=== PATIENT | female | born 1975 | race Caucasian/White ===

== ENCOUNTER → 2018-04-21 09:58 | Outpatient (CLI) | payer BC, SELFPAY ==
[2018-04-21 12:45] LABS: Vitamin D,25 Hydroxy 23.3 ng/mL (29.95-100.01)
== END ==
PROVIDERS: Family Provider Family Medicine; PCP Family Medicine; Visit Provider Family Medicine
DX: E55.9 Vitamin D deficiency, unspecified (principal)
CPT/HCPCS: 36415; 82306

== ENCOUNTER → 2018-08-04 | Outpatient (CLI) | payer BC, SELFPAY ==
[2016-12-03 19:37] VITALS: BMI 31.4
--- NOTE | 2018-08-04 14:46 | RAD_ITS ---
STUDY: X-RAY - THORACIC SPINE REASON FOR EXAM: Female, 43 years old. Shoulder pain and weakness. TECHNIQUE: 3 view(s) of the thoracic spine were obtained. COMPARISON: None. FINDINGS: Normal kyphosis of the thoracic spine. There is no significant scoliosis. Normal thoracic vertebrae and endplates. Normal disc space heights. The soft tissue structures are unremarkable. RAD/Thoracic Spine 3 Views IMPRESSION: Normal x-ray examination of the thoracic spine. Electronically Signed: Cornel Ray MD at 21:57 EDT , Service support ,
--- NOTE | 2018-08-04 14:46 | RAD_ITS ---
STUDY: X-RAY - CERVICAL SPINE REASON FOR EXAM: Female, 43 years old. Pain and numbness. TECHNIQUE: 5 view(s) of the cervical spine were obtained. COMPARISON: None FINDINGS: Normal anterior atlantoaxial articulation. Normal odontoid process. Normal cervical lordosis. Normal vertebral bodies and endplates. Normal disc space heights. Normal visualized intervertebral neuroforamina. The soft tissue structures are unremarkable. There is no demonstrated fracture of the cervical spine. RAD/Cerv Spine 4 or 5 Views IMPRESSION: Normal x-ray examination of the visualized cervical spine. Electronically Signed: Cornel Ray MD at 21:55 EDT , Service support ,
--- NOTE | 2018-08-04 14:46 | RAD_ITS ---
STUDY: X-RAY - RIGHT SHOULDER REASON FOR EXAM: Female, 43 years old. Pain. TECHNIQUE: 4 view(s) of the shoulder. COMPARISON: None. FINDINGS: Normal glenohumeral articulation. Normal acromioclavicular joint. Normal acromion. Normal humeral head and visualized proximal humerus. The soft tissue structures are unremarkable. There is no demonstrated fracture. Normal visualized pulmonary apex. RAD/Shoulder min 2 Views IMPRESSION: Normal x-ray examination of the shoulder. Electronically Signed: Cornel Ray MD at 21:56 EDT , Service support ,
== END | disposition home or self-care (01) ==
LOC: MTRAD 14:45
PROVIDERS: Family Provider Family Medicine; PCP Family Medicine; Referring Provider Family Medicine; Visit Provider Family Medicine
DX: M54.12 Radiculopathy, cervical region (principal); M75.111 Incomplete rotator cuff tear or rupture of right shoulder, not specified as traumatic; M12.811 Other specific arthropathies, not elsewhere classified, right shoulder
CPT/HCPCS: 72050; 72072; 73030

== ENCOUNTER → 2018-09-05 16:30 | Outpatient (CLI) | payer BC, SELFPAY ==
[2018-09-05 18:07] LABS: AST(SGOT) 33 U/L (15-37); Alanine Aminotransfer ALT/SGPT 48 U/L (13-56); Albumin, Serum 3.8 g/dL (3.2-5.0); Alkaline Phosphatase 66 U/L (45-117); Anion Gap 10 (5-15); BUN 10 mg/dL (7-18); BUN/Creat Ratio 9.3 RATIO (10-20); Calcium,Total 8.7 mg/dL (8.5-10.1); Chloride 108 mmol/L (98-107); Creatinine, Serum 1.07 mg/dL (0.55-1.02); EST Glomerular Filtration Rate 60 mL/min (>60); Est Glom Filt Rate - Afr Amer 73 mL/min (>60); Glucose 125 mg/dL (74-106); Potassium 3.4 mmol/L (3.5-5.1); Protein, Total 7.8 g/dL (6.4-8.2); Sodium Level 141 mmol/L (136-145); Thyroid Stim Hormone (TSH) 0.86 uIU/mL (0.358-3.74)
[2018-09-05 18:24] LABS: Absolute Lymphocyte Count 1.89 X10^3/ul (0.83-4.51); Basophil# 0.02 X10^3/uL; Basophil% 0.3 % (0-1); Eosinophil# 0.03 X10^3/uL; Eosinophils% 0.5 % (0-5); Hemoglobin 14.5 g/dl (12.0-15.0); Lymphocyte # 1.89 X10^3/ul (4.0); Lymphocyte % 29.7 % (19-41); Mean Corp Hgb Conc 33.7 g/gl (32-36); Mean Corpuscular Hgb 28.3 pg (27.0-32.0); Mean Corpuscular Volume 83.8 fL (81-99); Mean Platelet Vol. 11.3 fl (6.2-12.0); Monocyte# 0.43 X10^3/uL; Monocyte% 6.8 % (0-10); Neutrophil # 3.99 X10^3/uL (2.7-7.7); Neutrophil % 62.5 % (47-70); Platelet Count 228 K/mm3 (150-450); RBC Distribution Width CV 12.8 % (11.6-14.6); RBC Distribution Width SD 38.3 fl (35.1-43.9); Red Blood Count 5.13 M/mm3 (4.2-5.4); White Blood Count 6.4 K/mm3 (4.4-11.0)
[2018-09-05 18:25] LABS: Differential Indicated SCAN CRITERIA MET; POSITIVE COUNT NO; POSITIVE DIFFERENTIAL NO; POSITIVE MORPHOLOGY YES
[2018-09-05 18:54] LABS: Platelet Estimate ADEQUATE (ADEQ); Red Cell Morphology NORM C+C NORMAL (NORM C&C)
== END ==
PROVIDERS: Family Provider Family Medicine; PCP Family Medicine; Visit Provider Family Medicine
DX: E03.9 Hypothyroidism, unspecified (principal); L40.9 Psoriasis, unspecified
CPT/HCPCS: 36415; 80053; 84443; 85025

== ENCOUNTER → 2018-09-06 08:29 | Outpatient (CLI) | payer BC, SELFPAY ==
[2018-09-10 08:20] LABS: HPV HC, High Risk Negative (Negative)
== END ==
PROVIDERS: Family Provider Family Medicine; PCP Family Medicine; Visit Provider Family Medicine
DX: Z12.4 Encounter for screening for malignant neoplasm of cervix (principal)
CPT/HCPCS: 87624; 88175; G0145

== ENCOUNTER → 2018-12-05 15:27 | Outpatient (CLI) | payer BC, SELFPAY ==
--- NOTE | 2018-12-05 15:29 | BI_ITS ---
MAMMOGRAPHY - BILATERAL SCREENING REASON FOR EXAM: Female, 43 years old. Routine annual screening examination. PERTINENT HISTORY: Aunt with breast cancer. TECHNIQUE: Digital bilateral breast sandi (3D mammographic acquisition) in the CC and MLO projections. 2-D mediolateral oblique (MLO) and craniocaudad (CC) views of both breasts were obtained. CAD: Full Field Digital Mammography with Computer Added Detection was performed. COMPARISON: Comparison is made with prior outside examination dated August 10, 2017 and May 10, 2013. FINDINGS: Breast Composition: The breasts are heterogeneously dense, which may obscure small masses. There are no dominant masses or suspicious calcifications. Stable small benign-appearing bilateral axillary lymph nodes. No other significant abnormalities are identified. There has been no significant change since the prior study. BI/SCREEN MAMM (CAD) W/SANDI BILAT IMPRESSION: Stable bilateral screening mammogram. Yearly follow-up mammogram recommended. (A) ASSESSMENT CATEGORY: BIRADS Category 2: Benign. A letter regarding these results will be sent to the patient by the facility within 30 days. Approximately 10% of breast cancers are not detected by mammography. A normal mammogram should not delay biopsy of a clinically suspicious abnormality. [id number] Electronically Signed: Miguel Velez, at 13:13 EDT , Service support ,
== END ==
PROVIDERS: Family Provider Family Medicine; PCP Family Medicine; Referring Provider Family Medicine; Visit Provider Family Medicine
DX: Z12.31 Encounter for screening mammogram for malignant neoplasm of breast (principal)
CPT/HCPCS: 77063; 77067

== ENCOUNTER → 2019-06-05 12:00 | Outpatient (CLI) | payer BC, SELFPAY ==
[2019-06-05 15:31] LABS: Vitamin D,25 Hydroxy 27.7 ng/mL (29.95-100.01)
== END ==
PROVIDERS: Family Provider Family Medicine; PCP Family Medicine; Visit Provider Family Medicine
DX: E03.9 Hypothyroidism, unspecified (principal); E55.9 Vitamin D deficiency, unspecified
CPT/HCPCS: 36415; 82306

== ENCOUNTER 2019-06-09 11:12 | Emergency (ER) | payer BC, SELFPAY ==
[2019-06-09 11:15] VITALS: BP 154/97; PULSE 90; RESP 17; TEMP 37.1; O2SAT 99; BMI 33.3
--- NOTE | 2019-06-09 11:41 | CT_ITS ---
STUDY: CTA HEAD AND NECK WITH CONTRAST REASON FOR EXAM: Female, 43 years old. HEADACHE, RT SIDE PARAESTHESIAS RADIATION DOSAGE (If Supplied By Facility): CTDIvol = ( 23.76 ) mGy, DLP = ( 1393.44 ) mGycm TECHNIQUE: Noncontrast head CT initially performed. CT angiography was performed with a multi-detector CT scanner. Data acquisition was obtained from the skull base through the vertex following intravenous administration of ISOVUE 300 100ML. MIP images were reconstructed from the axial data set. Post-processing of the angiographic images was performed, with multiplanar reformation and 3D reconstruction. Degree of stenosis (when present) measured utilizing NASCET criteria. Individualized dose optimization techniques were used for this CT. COMPARISON: No relevant priors. FINDINGS: Normal bilateral petrous carotid arteries. Normal right cavernous carotid artery with a normal supraclinoid bifurcation. Normal left cavernous carotid artery with a normal supraclinoid bifurcation. Normal right A1 segments of the anterior cerebral artery. Normal left A1 segments of the anterior cerebral artery. Normal intact anterior communicating artery (ACOM). Normal bilateral A2 segments of the anterior cerebral arteries. Normal right M1 and M2 segments of the middle cerebral arteries, with a normal M1 bifurcation. Normal left M1 and M2 segments of the middle cerebral arteries, with a normal M1 bifurcation. Normal right posterior communicating artery (PCOM). Normal left posterior communicating artery (PCOM). Normal bilateral vertebral arteries. Normal basilar artery with a normal basilar bifurcation. The visualized bilateral superior cerebellar (SCA) arteries are normal. Grossly bilateral P1, P2 and visualized P3 segments of the posterior cerebral arteries but limited evaluation of left posterior cerebral artery due to small size. There is no demonstrated aneurysm of the [place]. There is no demonstrated abnormality of the visualized brain. AORTIC ARCH: Normal visualized aortic arch. Normal origins of the brachiocephalic, left common carotid, and left subclavian arteries. RIGHT CAROTID ARTERIES: Normal right common carotid artery (CCA). Normal right common carotid bulb. Normal origin of the right internal carotid (ICA) artery without a hemodynamically significant stenosis. Normal visualized cervical portion of the right internal carotid artery. Normal origin of the right external carotid artery (ECA). LEFT CAROTID ARTERIES: Normal left common carotid artery (CCA). Normal left common carotid bulb. Normal origin of the left internal carotid (ICA) artery without a hemodynamically significant stenosis. Normal visualized cervical portion of the left internal carotid artery. Normal origin of the left external carotid artery (ECA). VERTEBRAL ARTERIES: Normal bilateral vertebral arteries. Ventricular system is normal for age. No masses, mass effect or shift of midline structures. No acute intracranial hemorrhage, obvious infarction. Visualized paranasal sinuses, mastoid air cells and orbits are unremarkable. Calvarium and extracranial soft tissues are unremarkable. CT/CTA Head AND Neck W/ Contrast IMPRESSION: 1. Normal CTA Head and neck with contrast. 2. No acute intracranial hemorrhage or mass effect. Electronically Signed: Daryn Olivarez MD ([place]) at 13:24 EST , Service support ,
[2019-06-09] MEDS: 0.9% Normal Saline 1,000 ML 150 ML IV (11:52)
[2019-06-09 11:53] VITALS: BP 138/99; PULSE 81; RESP 15; O2SAT 99
[2019-06-09 12:09] LABS: Absolute Lymphocyte Count 1.57 X10^3/uL (0.83-4.51); Absolute Neutrophil Count 3.3 X10^3/uL (2.0-7.7); Basophil# 0.02 X10^3/uL; Basophil% 0.4 % (0-1); Eosinophil# 0.13 X10^3/uL; Eosinophils% 2.4 % (0-5); Hemoglobin 14.9 g/dL (12.0-15.0); Lymphocyte # 1.57 X10^3/ul (4.0); Lymphocyte % 28.6 % (19-41); Mean Corp Hgb Conc 32.4 g/dL (32-36); Mean Corpuscular Volume 86.3 fL (81-99); Mean Platelet Vol. 10.3 fl (6.2-12.0); Monocyte# 0.46 X10^3/uL; Monocyte% 8.4 % (0-10); NRBC Flagged by Analyzer 0 % (0-5); Neutrophil # 3.29 X10^3/uL (2.7-7.7); Neutrophil % 59.8 % (47-70); Platelet Count 244 K/mm3 (150-450); RBC Distribution Width CV 12.4 % (11.6-14.6); RBC Distribution Width SD 38.9 fl (35.1-43.9); Red Blood Count 5.33 M/mm3 (4.2-5.4); White Blood Count 5.5 K/mm3 (4.4-11.0)
[2019-06-09 12:12] LABS: Mucous, Urine 0 SEEN /hpf (<or=2+); Red Blood Cells-Urine 0 SEEN /hpf (0-5); White Blood Cells 0 SEEN /hpf (0-5)
[2019-06-09 12:15] LABS: Color, Urine Yellow (Yellow); Glucose, Dipstick Normal (Normal); Ketone-Dipstick Negative (Negative); Leukocyte Esterase-Dipstick Negative /ul (Negative); Nitrite-Dipstick Negative (Negative); Occult Blood-Urine Negative /ul (Negative); Protein-Dipstick Negative (Negative); Specific Gravity, Urine 1.015 (1.002-1.030); Urine Bilirubin Dipstick Negative (Negative); Urine Clarity Clear (Clear); Urine Urobilinogen Normal (Normal)
[2019-06-09 12:19] LABS: Anion Gap 5 (5-15); BUN 14 mg/dL (7-18); BUN/Creat Ratio 16.1 RATIO (10-20); Calcium,Total 8.6 mg/dL (8.5-10.1); Chloride 105 mmol/L (98-107); Creatinine, Serum 0.87 mg/dL (0.55-1.02); EST Glomerular Filtration Rate 76 mL/min (>60); Est Glom Filt Rate - Afr Amer 92 mL/min (>60); Estimated Creatinine Clearance 70.39 ml/min; Glucose 101 mg/dL (74-106); Potassium 4.1 mmol/L (3.5-5.1); Sodium Level 138 mmol/L (136-145)
[2019-06-09 12:36] LABS: Bacteria RARE /hpf (None Seen); Squamous Epithelial Cells - UA 0-5 SEEN /hpf (5-10)
[2019-06-09 13:19] LABS: hCG Titer Quant., Serum < 1 mIU/mL (1-3)
--- NOTE | 2019-06-09 13:55 | ED.VISSUMM ---
- ER Visit Summary Date of Service: 06/09/19 Chief Complaint: Headache and paresthesias] History of Present Illness: The patient is a 43 F [presents the emergency department with complaint of symptoms that started 4 days ago. Patient states that she initially woke up with a headache about 4 days ago in the back of her head. It was more right-sided and then kind of came around the front. Patient then had pain behind her right baptism and right eyebrow and right eye. Patient was seen by her chiropractor and had adjustments made. Patient had some twitching of her eye intermittently and chiropractor thought maybe she had trigeminal neuralgia. Patient states that she has had occipital neuralgia in the past. She has history of chronic neck pain issues. This morning she woke up some with some numbness and tingling in the right side of her body especially the right hand as well as the bottom of her right foot. She has had similar symptoms in the past when she sleeps certain ways. Patient denies much headache at this time. She denies nausea or vomiting. She denies any photophobia at this time. There is no family history of brain tumors or aneurysms.] Physical Examination: [HEENT-PERRLA, EOMI. Cranial nerves II through XII grossly intact. TMs clear. Mucous membranes moist. No adenopathy. Cardiovascular-regular rate and rhythm without murmur or ectopy Lungs-clear to auscultation, chest wall stable without crepitus or subcu emphysema Abdomen-normoactive bowel sounds, soft, nontender, no rebound or rigidity, no peritoneal signs. Neuro atvv-ozajgl-pucw and heel hurtado testing within normal limits, negative Romberg, negative for drift, fundi benign. NIH stroke scale was a 1 for the paresthesias. Extremities-intact ?4, normal range of motion, normal pulses, atraumatic] Test Results: [CTA of the head and neck were normal. CBC with differential was normal. Chemistries unremarkable. hCG was negative. Urinalysis normal.] Emergency Department Course and Treatment: [Patient did not want any treatment in the department I offered her Reglan and Benadryl which she refused. Patient cannot tolerate anti-inflammatories.] Treatment Plan: [We will be given a prescription for Norflex and also few [place] for severe pain. Patient advised to follow-up with her primary care physician within next 3 to 5 days. Do not feel the patient is having a stroke. Possibly complex migraine.] Disposition: [Discharged home in stable condition.] Impression: [Cephalgia Paresthesias] This note was generated with [employer] dictation software. It may contain incorrect words, spelling, and punctuation that were not noted in review of the chart prior to signing ED Disposition - Plan for ED Patient: Referrals: Jenn Stark MD [Primary Care Provider] -
--- NOTE | 2019-06-09 13:58 | DCINST.ED_ITS ---
ED Disposition - Plan for ED Patient: Instructions: HEADACHE, Unspecified, Paraesthesias Prescriptions: Hydrocodone Bitart/Apap 5-325 [[place] 5MG-325MG] 1 tab PO Q4H PRN PRN 2 Days #10 tab PRN Reason: Pain Prescription Printed Orphenadrine [Norflex ER] 100 mg PO BID #14 tab Transmission Status: Pending to [facility] Referrals: Jenn Stark MD [Primary Care Provider] - 3-5 Days
--- NOTE | 2019-06-09 13:58 | ED.DEP ---
ED Disposition - Plan for ED Patient: Instructions: HEADACHE, Unspecified, Paraesthesias Prescriptions: Hydrocodone Bitart/Apap 5-325 [[place] 5MG-325MG] 1 tab PO Q4H PRN PRN 2 Days #10 tab PRN Reason: Pain Prescription Printed Orphenadrine [Norflex ER] 100 mg PO BID #14 tab Transmission Status: Pending to [facility] Referrals: Jenn Stark MD [Primary Care Provider] - 3-5 Days
[2019-06-09 14:14] VITALS: BMI 33.3
[2019-06-09 14:15] VITALS: BP 122/88; PULSE 79
--- NOTE | 2019-06-09 14:30 | DCINST.ED_ITS ---
ED Disposition - Plan for ED Patient: Disposition: Home or Assisted Living Instructions: HEADACHE, Unspecified, Paraesthesias Prescriptions: Hydrocodone Bitart/Apap 5-325 [[place] 5MG-325MG] 1 tab PO Q4H PRN PRN 2 Days #10 tab PRN Reason: Pain Prescription Printed Orphenadrine [Norflex ER] 100 mg PO BID #14 tab Transmission Status: Received by [facility] Orphenadrine [Norflex ER] 100 mg PO BID #14 tab Prescription Printed Referrals: Jenn Stark MD [Primary Care Provider] - 3-5 Days
== END 2019-06-09 14:16 | disposition home or self-care (01) ==
LOC: ED 11:41
PROVIDERS: Emergency Provider Emergency Medicine; PCP Family Medicine
DX: R51 Headache (principal); R20.2 Paresthesia of skin; R20.0 Anesthesia of skin; M54.2 Cervicalgia; G89.29 Other chronic pain; Z79.899 Other long term (current) drug therapy
CPT/HCPCS: 70496; 70498; 80048; 81001; 84702; 85025; 96361; 96374; 96375; 99283; J7030; Q9967

== ENCOUNTER → 2019-09-18 15:48 | Outpatient (CLI) | payer BC, SELFPAY ==
[2019-09-18 17:15] LABS: ALB/GLOB Ratio 0.9 RATIO (0.9-2.4); AST(SGOT) 36 U/L (15-37); Alanine Aminotransfer ALT/SGPT 57 U/L (13-56); Albumin, Serum 3.7 g/dL (3.2-5.0); Alkaline Phosphatase 72 U/L (45-117); Anion Gap 8 (5-15); BUN 17 mg/dL (7-18); Calcium,Total 8.8 mg/dL (8.5-10.1); Chloride 106 mmol/L (98-107); EST Glomerular Filtration Rate 65 mL/min (>60); Est Glom Filt Rate - Afr Amer 78 mL/min (>60); Globulin 3.9 g/dL (2.2-4.2); Glucose 117 mg/dL (74-106); Potassium 3.6 mmol/L (3.5-5.1); Protein, Total 7.6 g/dL (6.4-8.2); Sodium Level 140 mmol/L (136-145); T4 Free Direct 1.28 ng/dL (0.76-1.46); Thyroid Stim Hormone (TSH) 0.21 uIU/mL (0.358-3.74)
--- OUTSIDE RECORDS SUMMARY | 2020-02-03 06:40 | XMS RPT_ITS | CCD ---
:1975 External Reference #:[id number] Author Organization [employer] Care Team Providers Name Role Phone Unavailable Unavailable Unavailable Results Result Name Value Range Unit Interpretation Flag Date Location progress on 2019-01 PROGRESS HNO ID: [id number] Normal 02-09-2019 [facility] Author: Carlotta TamPt) Xiang Camacho ([id number]) Service: ? Author Type: Physical Therapist Type: Progress Notes Filed: 02/09/2019 9:17 AM Note Text: 02/09/2019 [facility]ER[facility] PHYSICAL THERAPY DISCONTINUANCE OF CARE Plan of Care Period: Start of Care Date: 10/09/18 Last Visit Date: 10/09/2018 Therapy Program: Patient did not return for follow up care a s planned. Please refer to last visit note for interventions provided f or this episode of care. Assessment: Unable to formally assess goal achievement due to non-compli ance with therapy plan of care. Reason for Discontinuation of Care: Patient has not returned to therapy or scheduled additional follow-up appointments. Carlotta Otoole PT progress on 2018-09 PROGRESS HNO ID: [id number] Normal 10-09-2018 [facility] Author: Carlotta Camacho ([id number]) Service: ? Author Type: Physical Therapist Type: Progress Notes Filed: 10/09/2018 6:31 PM Note Text: Episode Visit Count: 1 No Data Recorded REHABILITATION AND SPORTS THERAPY PHYSICAL THERAPY EVALUATION PLAN OF CARE: Assessment: Abbi Mike presents with the chief complaint o f R shoulder pain. She presents with impairments of decreased AROM, weakn ess and functional limitations. She may benefit from skilled therapy services to improve R shoulder strength, AROM and painfree function. Goals for Episode of Care: created on through [place] in home exercise program. Patient will decrease pain rating by 2 points to meet minima l clinical important difference for numeric pain rating scale. Patient will increase active ROM of R shoulder flexion to 16 0 deg, abd to 120 deg and ER to 60 deg to allow pt to improved performance of ADLs. Patient will increase strength of R shoulder musculature to 4 to 5/5 to allow for return to prior functional status and decreased pa in. Perform overhead reaching, use of arm at shoulder level, nawaf ly activities and farm chores with decreased report of symptoms/pain in 4- 8 weeks. Demonstrate improvement on functional score: Patient will im prove his/her score on Quick DASH by 8% to indicate a Minimal Clinical Imp ortant Difference . Improve postural awareness. Planned Interventions, Frequency, and Duration: Planned Treatment Interventions: Patient demonstrates good understanding of plan of care and treatment. The above goals and plan of care were discussed and agreed u kleber by patient/family. SUBJECTIVE: Abbi Mike is a 43 year old female seen today for Pain: OBJECTIVE MEASURES WITH LEVEL OF FUNCTION: Education: TREATMENT: Evaluation Therapeutic Exercise: 1: *Pendulum ex R shld sagittal plane x 20 reps 2: *Pendulum ex R shld frontal plane x 20 reps 3: *Pendulum ex circles x 20 reps 4: *R upper trap stretches 30 sec holds x 3 reps Skilled Intervention: Patient was educated in proper exercis e technique and purpose for exercises. Skilled judgment was provided in selection of appropriate in terventions. Provided written instruction for home exercise program to fa cilitate proper performance and compliance. Correct performance of therapeutic exercises was facilitated with verbal and visual cuing. Patient education as noted. Modalities: Ultrasound Body Region Treated - Ultrasound: R shoulder, subacromial sp alexandr and posterior Patient Position: seated upright on plinth Mode: 50% pulsed w/cm2: 1.2 MHZ: 1 Minutes: 10 See flowsheet for details regarding treatment. Skilled Inter vention: Proper administration and selection of modality based on cli nical presentation, deficits, and needs. Patient response monitore d throughout treatment. Billing: [facility]: Evaluation - Low Complexity ([id number]) Therapeutic Exercise (84488): 1:1 time: 15 minutes (1 unit: 8-22 mins) Modalities Ultrasound (71575) 1:1 time: 10 minutes1 unit: 8- 22 mins Total time: 45 minutes Carlotta Otoole PT cntherapy on 6-24 CNTHERAPY OT/PT/Speech Visit (PTWS) Normal 09-17 [place] ABBI MIKE ([id number]) 1975 F Clinic Date Time Provider Department [place] 10/09/18 5:00 PM CARLOTTA OTOOLE (PT) PTWS ([id number]) Date Time Provider Department [place] 10/09/2018 5:00 PM [id number] OTOOLE (PT) PTWS [facility] Acharya Reason for Visit: PT Eval [747] PT Discharge [752] Reason For Visit History Recorded Primary Visit Diagnosis:Rotator cuff tear arthropathy of rig ht shoulder [M75.101, M12.811] Other Visit Diagnosis:Cervical radiculitis [M54.12] Allergies As of Date: 10/09/2018 Noted Allergy Reaction ASPIRIN 12/23/2011 4 - Hives 7 - Swelling FENOFIBRATE 12/23/2011 4 - Hives HYDROCODONE 05/17/2013 9 - Itching NSAIDS (NON-STEROIDAL ANTI-INFLAM*03/25/2008 7 - Swelling Comments: Mouth/lip swelling PENICILLINS 03/25/2008 16 - Unknown Comments: Told allergic since a child. TRICOR (FENOFIBRATE MICRONIZED) 12/23/2011 4 - Hives Date Reviewed: 06/17/2018 Reviewed by: Alicia Hoff Ma - Fully Assessed Prescriptions as of 10/09/2018 Sig: SYNTHROID 112 MCG TABLET Take 1 tablet by mouth once d* CITALOPRAM 10 MG TABLET Take 5 mg by mouth once daily. MONTELUKAST 10 MG TABLET Take 1 tablet by mouth once d* LORAZEPAM 1 MG TABLET Progress Notes: Carlotta Otoole PT 10/09/2018 6:31 PM Signed Episode Visit Count: 1 No Data Recorded REHABILITATION AND SPORTS THERAPY PHYSICAL THERAPY EVALUATION PLAN OF CARE: Assessment: Abbi Mike presents with t he chief complaint of R shoulder pain. She presents with impairments of decreased AROM, weakness an d functional limitations. She may benefit from skilled therapy services t o improve R shoulder strength, AROM and painfree function. Goals for Episode of Care: created on through [place] in home exercise program. Patient will decrease pain r ating by 2 points to meet minimal clinical important difference for numeric pain rating scale. Patient will increase active ROM of R shoulder f lexion to 160 deg, abd to 120 deg and ER to 60 deg to allow pt to improved performance of ADLs. Patient will increase strength of R shoulder mus culature to 4 to 5/5 to allow for return to prior functional status and decreased pain. Perform overhead reaching, use of arm at shoulde r level, daily activities and farm chores with decreased report of symptoms/pain in 4-8 we eks. Demonstrate improvement on f unctional score: Patient will improve his/her score on Quick DASH by 8% to indicate a Minimal Clinical Important Difference . Improve postural awareness. Planned Interventions, Frequency, and Duration: Planned Treatment Interventions: Patient demonstrates good understanding of plan of care and treatment. The above goals and plan of care were discus sed and agreed upon by patient/family. SUBJECTIVE: Abbi Mike is a 43 year old female seen today for Pain: OBJECTIVE MEASURES WITH LEVEL OF FUNCTION: Education: TREATMENT: Evaluation Therapeutic Exercise: 1: *Pendulum ex R shld sagittal plane x 20 reps 2: *Pendulum ex R shld frontal plane x 20 reps 3: *Pendulum ex circles x 20 reps 4: *R upper trap stretches 30 sec holds x 3 reps Skilled Intervention: Patient was educated in proper exerc ise technique and purpose for exercises. Skilled judgment was provided in selection of appropriate in terventions. Provided written instruction for home exercise program to facilitate proper performance and compliance. Correct performance of therapeutic exercises was facil itated with verbal and visual cuing. Patient education as noted. Modalities: Ultrasound Body Region Treated - Ultrasound: R shoulder, jay bacromial space and posterior Patient Position: seated upright on plinth Mode: 50% pulsed w/cm2: 1.2 MHZ: 1 Minutes: 10 See flowsheet for details regarding treatment. Skilled Int ervention: Proper administration and selection of modality based on clinical p resentation, deficits, and needs. Patient response monitored throughout t reatment. Billing: [facility]: Evaluation - Low Complexity ([id number]) Therapeutic Exercise (66554): 1:1 time: 15 minutes (1 unit: 8-22 mins) Modalities Ultrasound (38701) 1:1 time: 10 minutes1 unit: 8- 22 mins Total time: 45 minutes Carlotta Otoole, PT Carlotta Otoole PT 10/09/2018 6:33 PM Signed Addended by: XIANG MCNULTY CARLOTTA on: 10/09/2018 06:33 PM Modules accepted: Orders Carlotta Otoole PT 02/09/2019 9:17 AM Signed 02/09/2019 [facility]ERAP[facility] PHYSICAL THERAPY DISCONTINUANCE OF CARE Plan of Care Period: Start of Care Date: 10/09/18 Last Visit Date: 10/09/2018 Therapy Program: Patient did not return for foll ow up care as planned. Please refer to last visit note for interventions provi ded for this episode of care. Assessment: Unable to formally assess goal achievement due t o non-compliance with therapy plan of care. Reason for Discontinuation of Care: Patient has not returned to therapy or scheduled additional follow-up appointments. Carlotta Otoole PT progress on 2018-06 PROGRESS HNO ID: [id number] [place] 06-17-2018 [place] Author: Gil Reyes [facility] Service: ? [place] Author Type: Physician ([id number]) Type: Progress Notes Filed: 06/17/2018 3:54 PM Note Text: Patient presents with: Finger Pain HPI: Skin Lesion: Location: distal left middle finger Duration: broke nail last night at car wash, painful since t his morning Pruritis/Pain: Swollen painful throbbing Change: Worsening and spreading down to the hand Drainage/blister/pustule/ulceration: Redness, swelling Treatment: Soaking, tylenol PAST MEDICAL HISTORY Diagnosis Date - Polycystic ovaries - Psoriasis - Seasonal allergies - Unspecified hypothyroidism MEDICATIONS: SYNTHROID 112 mcg tablet Take 1 tablet by mouth once daily. citalopram hydrobromide (CELEXA) 10 mg tablet Take 5 mg by m outh once daily. montelukast (SINGULAIR) 10 mg tablet Take 1 tablet by mouth once daily. LORAZEPAM 1 mg tablet ALLERGIES: ALLERGIES Allergen Reactions - Aspirin Hives, Swelling - Fenofibrate Hives - Hydrocodone Itching - Nsaids (Non-Steroid* - Penicillins - Tricor [Fenofibrate* Hives VITALS: BP 118/80 Pulse 80 Temp 37.4 ?C (99.3 ?F) (Tympanic) R gregorio 14 Wt 83.5 kg (184 lb) PE: Pleasant, in no acute distress. Finger: Left middle. Distal nail is trimmed very short. Mild swelling along the lateral nail fold is tender, mild swelling of the pad is tender. Decreased flexion of the finger. ASSESSMENT/PLAN: 1. Paronychia of left middle finger - ICD9: 681.02, ICD10: L 03.012 Start - CEPHALEXIN 500 MG CAPSULE tid. She has early signs of felon. If swelling, pain, or proximal spreading infection increase or she has fever then proceed to the ER f or further evaluation and treatment. Gil Reyes MD cnov on 2018-06-17 CNOV Office Visit (UCWSTR) Normal 06-18-19 19 [place] [facility] ABBI MIKE ([id number]) 1975 F [facility] Time Provider Department ([id number]) 06/17/18 3:15 PM GIL REYES [facility] During your visit today, we recorded the following informati on about you: Temperature Pulse Respiration Blood pressure 99.3 degrees 80/minute 14/minute 118/80 Weight 83.5 kg Gil Reyes MD 06/17/2018 3:54 PM Addendum Patient presents with: Finger Pain HPI: Skin Lesion: Location: distal left middle finger Duration: broke nail last night at car wash, painful since t his morning Pruritis/Pain: Swollen painful throbbing Change: Worsening and spreading down to the hand Drainage/blister/pustule/ulceration: Redness, swelling Treatment: Soaking, tylenol PAST MEDICAL HISTORY Diagnosis Date - Polycystic ovaries - Psoriasis - Seasonal allergies - Unspecified hypothyroidism MEDICATIONS: SYNTHROID 112 mcg tablet Take 1 tablet by mouth once daily. citalopram hydrobromide (CELEXA) 10 mg tablet Take 5 m g by mouth once daily. montelukast (SINGULAIR) 10 mg tablet Take 1 tablet by mouth once daily. LORAZEPAM 1 mg tablet ALLERGIES: ALLERGIES Allergen Reactions - Aspirin Hives, Swelling - Fenofibrate Hives - Hydrocodone Itching - Nsaids (Non-Steroid* - Penicillins - Tricor [Fenofibrate* Hives VITALS: BP 118/80 Pulse 80 Temp 37.4 ?C (99.3 ?F) (Tympanic) R gregorio 14 Wt 83.5 kg (184 lb) PE: Pleasant, in no acute distress. Finger: Left middle. Distal nail is trimmed very short. Mi ld swelling along the lateral nail fold is tender, mild sw elling of the pad is tender. Decreased flexion of the finger. ASSESSMENT/PLAN: 1. Paronychia of left middle finger - ICD9: 681.02, ICD10: L 03.012 Start - CEPHALEXIN 500 MG CAPSULE tid. She has early signs of felon. If swelling, pain, or proximal spreading infection increase or she has fever then proceed to the ER f or further evaluation and treatment. Gil Reyes MD Referring Provider: SELF [200] Allergies As of Date: 06/17/2018 Noted Allergy Reaction ASPIRIN 12/23/2011 4 - Hives 7 - Swelling FENOFIBRATE 12/23/2011 4 - Hives HYDROCODONE 05/17/2013 9 - Itching NSAIDS (NON-STEROIDAL ANTI-INFLAM*03/25/2008 7 - Swelling Comments: Mouth/lip swelling PENICILLINS 03/25/2008 16 - Unknown Comments: Told allergic since a child. TRICOR (FENOFIBRATE MICRONIZED) 12/23/2011 4 - Hives Date Reviewed: 06/17/2018 Reviewed by: Alicia Hoff Ma - Fully Assessed Reason for Visit: Finger Pain [1583] Primary Visit Diagnosis:Paronychia of left middle finger [L0 3.012] Order(s):cephALEXin (KEFLEX) 500 mg caps uleTake 1 capsule by mouth three times daily for 5 days.Disp: 15 capsuleRfl: 0 Prescriptions as of 06/17/2018 Sig: SYNTHROID 112 MCG TABLET Take 1 tablet by mouth once d* CITALOPRAM 10 MG TABLET Take 5 mg by mouth once daily. MONTELUKAST 10 MG TABLET Take 1 tablet by mouth once d* LORAZEPAM 1 MG TABLET CEPHALEXIN 500 MG CAPSULE Take 1 capsule by mouth three* Problem List As Of Date 06/17/2018 Noted Resolved UNSP ABNORMAL MAMMOGRAM [R92.8] INVALID FOR* Burn [T30.0] INVALID FOR* Prescriptions ordered this encounter Disp Refills Start End CEPHALEXIN 500 MG CAPSULE 15 c* 0 06/17/2018 06/22/2018 Route: ORAL Sig: Take 1 capsule by mouth three times daily for 5 days. Medications Discontinued During This Encounter cyclobenzaprine (FLEXERIL) 10 mg tab* 15 t* 0 01/04/20152018 Route: ORAL Sig: Take 1 tablet by mouth three times daily as needed for Muscle Spasm. Disc: Course of therapy completed THYROID,PORK (ARMOUR THYROID ORAL) 06/17/2018 Class: Historical Med Route: ORAL Sig: Take by mouth. Disc: Reason for discontinue is not on file. TRAZODONE 50 mg tablet 04/25/2013 06/17/2018 Class: Historical Med Sig: Disc: Reason for discontinue is not on file. [id number] oil (OMEGA 3) * 06/17/2018 Class: Historical Med Route: ORAL Sig: Take by mouth. Disc: Reason for discontinue is not on file. gabapentin (NEURONTIN) 300 mg capsule 15 c* 0 01/04/20152018 Sig: Take one(1) tablet daily at bedtime. Disc: Reason for discontinue is not on file. Encounter Status:Closed by GIL REYES MD on 06/17/18 Summary Purpose Family History No Family History Records Found Advance Directives No Advanced Directives Records Found Additional Source Comments FOR RECORDS PERTAINING TO PATIENTS WHO ARE OR HAVE BEEN ENROLLED IN A CHEMICAL DEPENDENCY/SUBSTANCE ABUSE PROGRAM, SOME INFORMATION MAY BE OMITTED. This clinical summary was aggregated from multiple sources. Caution should be exercised in using it in the provision of clinical care. This summary normalizes information from multiple sources, and as a consequence, information in this document may materially changethe coding, format and clinical context of patient data. In addition, data may be omittedin some cases. CLINICAL DECISIONS SHOULD BE BASED ON THE PRIMARY CLINICAL RECORDS. [facility] provides no warranty or guarantee of the accuracy or completeness of information in this document. UNRECOGNIZED CONTENT PROVIDED BELOW FOR UNRECOGNIZED SECTION INFORMATION SOURCE DATE CREATED AUTHOR AUTHOR'S ORGANIZATIO N 02/09/2019 [facility] Darin milian
== END ==
PROVIDERS: PCP Family Medicine; Visit Provider Family Medicine
DX: E03.9 Hypothyroidism, unspecified (principal); R73.01 Impaired fasting glucose
CPT/HCPCS: 36415; 80053; 84439; 84443

== ENCOUNTER 2020-01-16 20:36 | Emergency (ER) | payer BC, SELFPAY ==
[2020-01-16 20:38] VITALS: BP 111/62; PULSE 75; RESP 18; TEMP 36.3; O2SAT 100; BMI 32.8
--- NOTE | 2020-01-16 21:04 | CT_ITS ---
HISTORY: PT FELL OFF HORSE HITTING GATE. HEAD PAIN AND NECK PAIN. ADDITIONAL HISTORY: None provided. COMPARISON: 06/09/2019 EXAMINATION/TECHNIQUE: CT Head or Brain W/O Contrast Injection. Axial, coronal and sagittal images. Number of images including paperwork: 241. A radiation dose optimization technique was used for this scan. FINDINGS: BRAIN: No acute hemorrhage or mass. No definite acute infarct; MRI more sensitive. VENTRICULAR SYSTEM: No hydrocephalus. PARANASAL SINUSES AND MASTOIDS: No air-fluid level in the imaged extent. ORBITS: Unremarkable imaged extent. SKELETON AND SOFT TISSUES: Calvarium intact. ASPECTS score: Not applicable. CT/Brain/Head without Contrast IMPRESSION: No acute intracranial abnormality. Individualized dose optimization techniques were used for this CT. at 2234 Reported and signed by: Toshia Wright MD Electronically Signed: Toshia Wright MD at 22:33 EDT Tel , Service support ,
--- NOTE | 2020-01-16 21:05 | CT_ITS ---
HISTORY: PT FELL OFF HORSE HITTING GATE. HEAD AND NECK PAIN. ADDITIONAL HISTORY: None provided COMPARISON: Radiographs 08/04/2018 TECHNIQUE: Noncontrast CT images of the cervical spine. 2D images were reviewed to aid in assessment of the cervical spine. A radiation dose optimization technique was used for this scan. Number of images including paperwork: 406 FINDINGS: BONES: No acute fracture. No suspicious bone lesion. VERTEBRAL ALIGNMENT: No traumatic subluxation. Preservation of the normal cervical lordosis. DISCS AND JOINTS: Disc heights are preserved. SPINAL CANAL AND FORAMINA: No critical canal stenosis. SOFT TISSUES: No prevertebral soft tissue swelling. No pathologic-appearing cervical adenopathy. LUNG APICES: Unremarkable. PARANASAL SINUSES: Unremarkable imaged portions if any. CT/Spine Cervical without Contras IMPRESSION: No acute osseous abnormality. Individualized dose optimization techniques were used for this CT. at 2236 Reported and signed by: Toshia Wright MD Electronically Signed: Toshia Wright MD at 22:36 EDT Tel , Service support ,
--- NOTE | 2020-01-16 21:05 | RAD_ITS ---
HISTORY: PT FELL OFF OF HORSE AND HIT HEAD ON GATE. COMPLAINS OF SACRUM PAIN. ADDITIONAL HISTORY: None provided. EXAMINATION/TECHNIQUE: XR Pelvis 1 or 2 Views Number of images including paperwork: 1 COMPARISON: None FINDINGS: BONES: No acute fracture. JOINTS: No subluxation. SOFT TISSUES: No distinct foreign body. RAD/Pelvis 1 or 2 Views IMPRESSION: No acute osseous abnormality is radiographically apparent. at 2245 Reported and signed by: Toshia Wright MD Electronically Signed: Toshia Wright MD at 22:45 EDT Tel , Service support ,
[2020-01-16] MEDS: Ondansetron 4 MG/2 ML Vial IV (21:25)
[2020-01-16] MEDS: 0.9% Normal Saline 1,000 ML 1000 ML IV (21:25)
[2020-01-16] MEDS: Morphine 4 MG/ML Syringe IV (21:26)
--- NOTE | 2020-01-16 21:31 | ED.RN ---
called in and updated on patient condition and status at this time
[2020-01-16 21:38] VITALS: BP 130/79; PULSE 78; RESP 14; O2SAT 100
[2020-01-16 21:49] LABS: Bacteria 0 SEEN /hpf (None Seen); Mucous, Urine 0 SEEN /hpf (<or=2+); Red Blood Cells-Urine 0 SEEN /hpf (0-5); White Blood Cells 0 SEEN /hpf (0-5)
[2020-01-16 21:53] LABS: Absolute Lymphocyte Count 1.77 X10^3/uL (0.83-4.51); Absolute Neutrophil Count 4.2 X10^3/uL (2.0-7.7); Basophil# 0.03 X10^3/uL; Basophil% 0.5 % (0-1); Hemoglobin 14.3 g/dL (12.0-15.0); Lymphocyte # 1.77 X10^3/ul (4.0); Lymphocyte % 27.1 % (19-41); Mean Corp Hgb Conc 32.5 g/dL (32-36); Mean Corpuscular Hgb 28.6 pg (27.0-32.0); Mean Platelet Vol. 10.6 fl (6.2-12.0); Monocyte% 7.7 % (0-10); NRBC Flagged by Analyzer 0 % (0-5); Neutrophil # 4.19 X10^3/uL (2.7-7.7); Neutrophil % 64.2 % (47-70); Platelet Count 227 K/mm3 (150-450); RBC Distribution Width SD 41.4 fl (35.1-43.9); White Blood Count 6.5 K/mm3 (4.4-11.0)
[2020-01-16 21:55] LABS: Color, Urine Yellow (Yellow); Glucose, Dipstick Normal (Normal); Ketone-Dipstick Negative (Negative); Leukocyte Esterase-Dipstick Negative /ul (Negative); Nitrite-Dipstick Negative (Negative); Occult Blood-Urine Negative /ul (Negative); Protein-Dipstick Negative (Negative); Urine Bilirubin Dipstick Negative (Negative); Urine Clarity Clear (Clear); Urine Urobilinogen Normal (Normal)
[2020-01-16 21:57] LABS: Internal QC Validated? YES +Cl - CLEAR BKGD; Pregnancy, Urine Negative Negative
--- NOTE | 2020-01-16 22:00 | RAD_ITS ---
HISTORY: PT FELL OFF OF HORSE AND HIT HEAD ON GATE. ADDITIONAL HISTORY: None provided. EXAMINATION/TECHNIQUE: XR Chest 1 View AP/PA Number of images including paperwork: 1 COMPARISON: 01/31/2015 FINDINGS: LUNGS AND PLEURA: No consolidation, mass or pleural effusion. CARDIAC SILHOUETTE: Unremarkable. MEDIASTINUM AND MAURICE: Unremarkable. UPPER ABDOMEN: Unremarkable. SKELETON AND SOFT TISSUES: No acute skeletal findings. OTHER DEVICES AND HARDWARE: None. RAD/Chest 1 View (Portable) IMPRESSION: No acute cardiopulmonary abnormality. at 2244 Reported and signed by: Toshia Wright MD Electronically Signed: Toshia Wright MD at 22:44 EDT Tel , Service support ,
[2020-01-16 22:07] LABS: Squamous Epithelial Cells - UA 0-5 SEEN /hpf (5-10)
[2020-01-16 22:12] LABS: ALB/GLOB Ratio 0.9 RATIO (0.9-2.4); AST(SGOT) 45 U/L (15-37); Alanine Aminotransfer ALT/SGPT 72 U/L (13-56); Albumin, Serum 3.7 g/dL (3.2-5.0); Alkaline Phosphatase 72 U/L (45-117); Anion Gap 4 (5-15); BUN 14 mg/dL (7-18); BUN/Creat Ratio 14.8 RATIO (10-20); Calcium,Total 8.8 mg/dL (8.5-10.1); Chloride 111 mmol/L (98-107); Creatinine, Serum 0.94 mg/dL (0.55-1.02); EST Glomerular Filtration Rate 69 mL/min (>60); Est Glom Filt Rate - Afr Amer 84 mL/min (>60); Estimated Creatinine Clearance 64.49 ml/min; Glucose 101 mg/dL (74-106); Lipase 218 U/L (73-393); Potassium 3.5 mmol/L (3.5-5.1); Protein, Total 7.7 g/dL (6.4-8.2); Sodium Level 141 mmol/L (136-145)
[2020-01-16 22:14] LABS: Amphetamine Urine VISTA NEGATIVE (<1000 ng/mL); Barbiturate Urine VISTA NEGATIVE (< 200 ng/mL); Benzodiazepine Urine VISTA NEGATIVE (< 200 ng/mL); Cocaine Urine VISTA NEGATIVE (< 300 ng/mL); Ecstacy Urine VISTA NEGATIVE (< 500 ng/mL); Methadone Urine VISTA NEGATIVE (< 300 ng/mL); PCP Urine VISTA NEGATIVE (< 25 ng/mL); THC Urine VISTA NEGATIVE (< 50 ng/mL); Vista UDS pH Range 7
[2020-01-16 22:36] VITALS: BP 130/75; PULSE 85; RESP 18
[2020-01-16] MEDS: Morphine 2 MG/ML Syringe 1 MG IV (22:46)
[2020-01-16 23:01] VITALS: BP 141/78; PULSE 107; RESP 16; O2SAT 99
--- NOTE | 2020-01-16 23:27 | ED.VIS.GEN ---
History of Present Illness Chief Complaint: Trauma Informant: Patient Narrative: 44-year-old female with past medical history of hypothyroidism presents with concern for fall from horse. Patient brought in by EMS after she tried to mount a horse bareback and fell striking her back and neck. Complaining of neck pain which she describes as sharp. No numbness or tingling. Denies any headache or vision change. Denies any chest or abdominal pain. Patient is not on anticoagulation. Past Medical History - Allergies and Home Meds Allergies/Adverse Reactions: Allergies aspirin Allergy (Verified 01/16/20 20:42) Hives fenofibrate Allergy (Verified 01/16/20 20:42) Hives hydromorphone HCl [From Dilaudid] Allergy (Verified 01/16/20 20:42) Itching ibuprofen [From Motrin] Allergy (Verified 01/16/20 20:42) Swelling naproxen [From Naprosyn] Allergy (Verified 01/16/20 20:42) Hives CO-Q 10 Allergy (Uncoded 01/16/20 20:42) Hives Primary Care Physician: Jenn Stark MD [Primary Care Provider] - Past Medical History: - - hypothyroidism Surgical History: no surgical history Smoking Status: Never smoker - Family History Maternal Family History: Reports: - - grandpa with mi Paternal Family History: Reports: - - father with mi in age 30's Review of Systems General: Denies: Chills, Fever, Sweats Eyes: Denies: Visual changes - bilaterally, Diplopia ENT: Denies: Rhinorrhea, Sore throat Cardiovascular: Denies: Chest pain, Palpitations Respiratory: Denies: Dyspnea, Cough, Dyspnea on exertion Gastrointestinal: Denies: Abdominal pain, Nausea, Vomiting, Diarrhea, Melena, Hematochezia Genitourinary: Denies: Dysuria, Hematuria, Frequency Musculoskeletal: Reports: Neck pain, Back pain. Denies: Extremity Pain Skin: Denies: Rash, Wounds Neurological: Denies: Headache, Weakness, Numbness Physical Exam Vital Signs/Narrative: Vital Signs Temp Pulse Resp BP Pulse Ox 01/16/20 23:01 107 H 16 141/78 H 99 01/16/20 22:36 85 18 130/75 H 01/16/20 21:38 78 14 130/79 H 100 01/16/20 20:38 97.4 F L 75 18 111/62 100 Inital Vital Signs reviewed: Yes General: Well nourished, Well developed, No Acute Distress Head: Normocephalic, Atraumatic Eyes: Perrl, EOMI ENT: Moist mucous membranes, No rhinorrhea Neck: Supple, - - c collar in place. ttp on the lower cervical midline Cardiovascular: Regular rate, Regular rhythm, No murmurs Respiratory: No distress, CTA bilaterally, Chest nontender Abdomen: Soft, Nontender, Nondistended, Normal bowel sounds Back: Normal Inspection, - - ttp of the sacrum Extremities: Nontender, No edema Skin: Normal color, No rash Neurological: Alert, Oriented x3, Cranial nerves II-XII grossly intact, Normal Strength, Normal Sensation Psychological: Normal affect, Normal Mood Diagnostic/Tx/Re-eval Chest X-Ray - ED: 1 View, No Acute Disease Clinical Impression(s) from Imaging Studies Brain CT 01/16/20 21:04 IMPRESSION: No acute intracranial abnormality. Individualized dose optimization techniques were used for this CT. at 2239 Reported and signed by: Toshia Wright MD Electronically Signed: Toshia Wright MD at 22:33 EDT Tel , Service support , Cervical Spine CT 01/16/20 21:05 IMPRESSION: No acute osseous abnormality. Individualized dose optimization techniques were used for this CT. at 7691 Reported and signed by: Toshia Wright MD Electronically Signed: Toshia Wright MD at 22:36 EDT Tel , Service support , Pelvis X-Ray 01/16/20 21:05 IMPRESSION: No acute osseous abnormality is radiographically apparent. at 2245 Reported and signed by: Toshia Wright MD Electronically Signed: Toshia Wright MD at 22:45 EDT Tel , Service support , Chest X-Ray 01/16/20 22:00 IMPRESSION: No acute cardiopulmonary abnormality. at 2244 Reported and signed by: Toshia Wright MD Electronically Signed: Toshia Wright MD at 22:44 EDT Tel , Service support , Laboratory Data 01/16/20 01/16/20 01/16/20 21:35 21:35 21:35 WBC 6.5 RBC 5.00 Hgb 14.3 Hct 44.0 MCV 88.0 MCH 28.6 MCHC 32.5 RDW Std Deviation 41.4 RDW Coeff of Víctor 13.0 Plt Count 227 MPV 10.6 Immature Gran % (Auto) 0.500 Neut % (Auto) 64.2 Lymph % (Auto) 27.1 [place] % (Auto) 7.7 Eos % (Auto) 0.0 Baso % (Auto) 0.5 Absolute Neuts (auto) 4.2 Absolute Lymphs (auto) 1.77 Nucleated RBC % 0 Sodium 141 Potassium 3.5 Chloride 111 H Carbon Dioxide 26.0 Anion Gap 4 L BUN 14 Creatinine 0.94 Estim Creat Clear Calc 64.49 Est GFR (MDRD) Af Amer 84 Est GFR (MDRD) Non-Af 69 BUN/Creatinine Ratio 14.8 Glucose 101 Calcium 8.8 Total Bilirubin 0.30 AST 45 H ALT 72 H Alkaline Phosphatase 72 Total Protein 7.7 Albumin 3.7 Globulin 4.0 Albumin/Globulin Ratio 0.9 Lipase 218 Urine Color Urine Clarity Urine pH Ur Specific [place] Urine Protein Urine Glucose (UA) Urine Ketones Urine Occult Blood Urine Nitrite Urine Bilirubin Urine Urobilinogen Ur Leukocyte Esterase Urine RBC Urine WBC Ur Squamous Epith Cells Urine Bacteria Urine Mucus Urine Test Urine Opiates Screen Urine Methadone Screen Ur Barbiturates Screen Ur Phencyclidine Scrn Ur Amphetamines Screen U Methamphetamin-MDMA U Benzodiazepines Scrn Urine Cocaine Screen U Cannabinoids Screen Ur Drug Screen Comment Ethyl Alcohol 16.0 01/16/20 01/16/20 01/16/20 21:35 21:35 21:35 WBC RBC Hgb Hct MCV MCH MCHC RDW Std Deviation RDW Coeff of Víctor Plt Count MPV Immature Gran % (Auto) Neut % (Auto) Lymph % (Auto) [place] % (Auto) Eos % (Auto) Baso % (Auto) Absolute Neuts (auto) Absolute Lymphs (auto) Nucleated RBC % Sodium Potassium Chloride Carbon Dioxide Anion Gap BUN Creatinine Estim Creat Clear Calc Est GFR (MDRD) Af Amer Est GFR (MDRD) Non-Af BUN/Creatinine Ratio Glucose Calcium Total Bilirubin AST ALT Alkaline Phosphatase Total Protein Albumin Globulin Albumin/Globulin Ratio Lipase Urine Color Yellow Urine Clarity Clear Urine pH 7.0 Ur Specific [place] 1.010 Urine Protein Negative Urine Glucose (UA) Normal Urine Ketones Negative Urine Occult Blood Negative Urine Nitrite Negative Urine Bilirubin Negative Urine Urobilinogen Normal Ur Leukocyte Esterase Negative Urine RBC 0 SEEN Urine WBC 0 SEEN Ur Squamous Epith Cells 0-5 SEEN Urine Bacteria 0 SEEN Urine Mucus 0 SEEN Urine Test Negative Urine Opiates Screen NEGATIVE Urine Methadone Screen NEGATIVE Ur Barbiturates Screen NEGATIVE Ur Phencyclidine Scrn NEGATIVE Ur Amphetamines Screen NEGATIVE U Methamphetamin-MDMA NEGATIVE U Benzodiazepines Scrn NEGATIVE Urine Cocaine Screen NEGATIVE U Cannabinoids Screen NEGATIVE Ur Drug Screen Comment Ethyl Alcohol - Medical Decision Making Brought in by EMS. C-collar was placed at the bedside by myself. Primary survey negative. Secondary survey positive for cervical spine tenderness as well as sacral tenderness. Imaging negative. Patient given pain medication, fluid bolus. Specific transaminitis. No abdominal tenderness. On discussion with patient she has had this prior in the past and will follow-up with her primary care physician about this issue. Will be given [place] for home given her significant pain in her sacral area. Asked to follow-up with primary care. Discharged home in stable condition. Impression: 1. Fall from horse 2. Sacral contusion 3. Cervical strain ED Disposition - Plan for ED Patient: Disposition: Home or Assisted Living Instructions: ED Fall Uncertain Cause, Contusions (Bruises) Prescriptions: Hydrocodone Bitart/Apap 5-325 [[place] 5MG-325MG] 1 tab PO Q6H PRN PRN 3 Days #10 tab PRN Reason: Pain Prescription Printed Referrals: Jenn Stark MD [Primary Care Provider] -
--- NOTE | 2020-01-16 23:48 | RAD_ITS ---
HISTORY: FELL OFF A HORSEC/O RT LBP ADDITIONAL HISTORY: None provided. EXAMINATION/TECHNIQUE: XR Spine Lumbar Min 4 Views Number of images including paperwork: 5 COMPARISON: No previous lumbar radiographs. FINDINGS: VERTEBRAE: No acute fracture. VERTEBRAL ALIGNMENT: No traumatic subluxation. DISKS AND JOINTS: No significant degenerative changes. SOFT TISSUES: Unremarkable paraspinous soft tissues. RAD/L/S Spine Min 4 Views IMPRESSION: No acute osseous abnormality. at 0028 Reported and signed by: Toshia Wright MD Electronically Signed: Toshia Wright MD at 0:27 EDT Tel , Service support ,
[2020-01-17 00:30] VITALS: BP 130/76; PULSE 91; RESP 19; O2SAT 100
[2020-01-17] MEDS: Morphine 2 MG/ML Syringe 1 MG IV (00:34)
[2020-01-17] MEDS: HYDROcodone Bitartrate/Apap 5/325 Tablet PO (00:53)
[2020-01-17 01:13] VITALS: BP 136/75; PULSE 75; RESP 18; O2SAT 98
== END 2020-01-17 01:40 | disposition home or self-care (01) ==
PROVIDERS: Emergency Provider Emergency Medicine; PCP Family Medicine
DX: S16.1XXA Strain of muscle, fascia and tendon at neck level, initial encounter (principal); S30.0XXA Contusion of lower back and pelvis, initial encounter; V80.010A Animal-rider injured by fall from or being thrown from horse in noncollision accident, initial encounter; Y93.52 Activity, horseback riding; Y92.9 Unspecified place or not applicable; Y99.9 Unspecified external cause status; E03.9 Hypothyroidism, unspecified; Z79.899 Other long term (current) drug therapy
CPT/HCPCS: 70450; 71045; 72110; 72125; 72170; 80053; 80307; 80320; 81001; 81025; 83690; 85025; 96361; 96374; 96375; 96376; 99285; J7030; A4216; G0480; J2405

== ENCOUNTER → 2020-01-25 11:20 | Outpatient (CLI) | payer BC, SELFPAY ==
[2020-01-16 20:38] VITALS: BMI 32.8
[2020-01-25 15:45] LABS: Cholesterol 152 mg/dL (200); High Density Lipoprotein 31 mg/dL; Thyroid Stim Hormone (TSH) 2.19 uIU/mL (0.358-3.74); Triglycerides 173 mg/dL; Very Low Density Lipoprotein 35 mg/dL (5-40)
[2020-01-25 16:23] LABS: Hepatitis B Surface Antigen Non-Reactive (Nonreactive); Hepatitis C Antibody Non-Reactive (Nonreactive)
[2020-01-28 18:08] LABS: Anti-Smooth Muscle ABS 76 Units (0-19)
== END ==
PROVIDERS: PCP Family Medicine; Visit Provider Family Medicine
DX: E03.9 Hypothyroidism, unspecified (principal); R74.8 Abnormal levels of other serum enzymes; E78.1 Pure hyperglyceridemia
CPT/HCPCS: 36415; 80061; 83516; 84439; 84443; 86803; 87340

== ENCOUNTER → 2020-01-28 08:04 | Outpatient (CLI) | payer BC, SELFPAY ==
[2020-01-16 20:38] VITALS: BMI 32.8
--- NOTE | 2020-01-28 08:07 | US_ITS ---
STUDY: ABDOMINAL ULTRASOUND - RIGHT UPPER QUADRANT REASON FOR VISIT: Female, 44 years old elevated lfts TECHNIQUE: Ultrasound evaluation of the right upper quadrant was performed with real-time and static gil-scale imaging. TECHNICAL QUALITY: Adequate. COMPARISON: CT of the abdomen and pelvis dated 12/21/2013 FINDINGS: Liver: The liver measures 16.5 cm. There is increased echogenicity consistent with fatty infiltration. The bile ducts are within normal limits. There is hepatic color flow. The direction of portal flow is hepatopetal. There is no demonstrated mass lesion. Gallbladder: Normal distended gallbladder. The gallbladder wall measures 2.0 mm. There is a negative sonographic Lacey''s sign. There is no pericholecystic fluid. There are no gallstones. Common Bile Duct (C.B.D.): The common bile duct measures 3.8 mm. Pancreas: Normal size of the head, body and tail of the pancreas. There is normal echogenicity of the pancreas. There is no demonstrated pancreatic mass or cyst. Right Kidney: Normal size of the right kidney. The right kidney measures 10.3 cm in length. Normal renal cortex. Allowing for differences in technique there is grossly stable right pelviectasis. There is no demonstrated renal mass or cyst. US/Abdomen Limited IMPRESSION: Fatty infiltration of the liver. Electronically Signed: [place] Cameron MD at 20:18 EDT Tel , Service support ,
== END ==
PROVIDERS: PCP Family Medicine; Referring Provider Family Medicine; Visit Provider Family Medicine
DX: R74.8 Abnormal levels of other serum enzymes (principal)
CPT/HCPCS: 76705

== ENCOUNTER → 2020-03-19 11:05 | Outpatient (CLI) | payer BC, SELFPAY ==
--- NOTE | 2020-03-19 11:06 | BI_ITS ---
MAMMOGRAPHY - BILATERAL SCREENING REASON FOR EXAM: Female, 44 years old. Routine annual screening examination. PERTINENT HISTORY: Aunt with breast cancer. TECHNIQUE: Digital bilateral breast sandi (3D mammographic acquisition) in the CC and MLO projections. 2-D mediolateral oblique (MLO) and craniocaudad (CC) views of both breasts were obtained. CAD: Full Field Digital Mammography with Computer Added Detection was performed. COMPARISON: Comparison is made with prior study dated 12/05/2018 and 08/18/2015. FINDINGS: Breast Composition: The breasts are heterogeneously dense, which may obscure small masses. There are no dominant masses or suspicious calcifications. Stable small benign appearing bilateral axillary lymph nodes. No other significant abnormalities are identified. There has been no significant change since the prior study. BI/SCREEN MAMM (CAD) W/SANDI BILAT IMPRESSION: Stable bilateral screening mammogram. Yearly follow-up mammogram recommended. (A) ASSESSMENT CATEGORY: BIRADS Category 2: Benign. A letter regarding these results will be sent to the patient by the facility within 30 days. Approximately 10% of breast cancers are not detected by mammography. A normal mammogram should not delay biopsy of a clinically suspicious abnormality. [id number] Electronically Signed: Miguel Velez, at 11:55 EST , Service support ,
== END ==
PROVIDERS: PCP Family Medicine; Referring Provider Family Medicine; Visit Provider Family Medicine
DX: Z12.31 Encounter for screening mammogram for malignant neoplasm of breast (principal)
CPT/HCPCS: 77063; 77067

== ENCOUNTER 2020-07-15 10:00 | Outpatient (RCR) | payer OTHER, SELFPAY | END 2020-07-16 23:59 | LOC: NS 10:00 | PROVIDERS: PCP Family Medicine; Visit Provider Family Medicine | DX: Z71.3 Dietary counseling and surveillance (principal); E66.9 Obesity, unspecified; Z68.32 Body mass index [BMI] 32.0-32.9, adult; E03.9 Hypothyroidism, unspecified; E78.1 Pure hyperglyceridemia; K76.0 Fatty (change of) liver, not elsewhere classified | CPT/HCPCS: 97802; 97803 ==

== ENCOUNTER 2020-08-12 11:00 | Outpatient (RCR) | payer OTHER, SELFPAY | END 2020-08-15 23:59 | LOC: NS 11:00 | PROVIDERS: PCP Family Medicine; Visit Provider Family Medicine | DX: Z71.3 Dietary counseling and surveillance (principal); E66.9 Obesity, unspecified; Z68.32 Body mass index [BMI] 32.0-32.9, adult; E03.9 Hypothyroidism, unspecified; E78.1 Pure hyperglyceridemia; K76.0 Fatty (change of) liver, not elsewhere classified | CPT/HCPCS: 97803 ==

== ENCOUNTER 2020-09-09 11:00 | Outpatient (RCR) | payer OTHER, SELFPAY | END 2020-09-15 23:59 | LOC: NS 11:00 | PROVIDERS: PCP Family Medicine; Visit Provider Family Medicine | DX: Z71.3 Dietary counseling and surveillance (principal); E66.9 Obesity, unspecified; Z68.32 Body mass index [BMI] 32.0-32.9, adult | CPT/HCPCS: 97803 ==

== ENCOUNTER 2020-10-02 14:51 | Outpatient (RCR) | payer OTHER, SELFPAY | END 2020-10-15 23:59 | LOC: NS 14:51 | PROVIDERS: PCP Family Medicine; Visit Provider Family Medicine | DX: Z71.3 Dietary counseling and surveillance (principal); E66.9 Obesity, unspecified; Z68.32 Body mass index [BMI] 32.0-32.9, adult | CPT/HCPCS: 97803 ==

== ENCOUNTER 2020-11-11 11:00 | Outpatient (RCR) | payer OTHER, SELFPAY | END 2020-11-15 23:59 | LOC: NS 11:00 | PROVIDERS: PCP Family Medicine; Visit Provider Family Medicine | DX: Z71.3 Dietary counseling and surveillance (principal); E66.9 Obesity, unspecified; Z68.32 Body mass index [BMI] 32.0-32.9, adult | CPT/HCPCS: 97803 ==

== ENCOUNTER 2020-12-09 11:49 | Outpatient (RCR) | payer OTHER, SELFPAY | END 2020-12-16 23:59 | LOC: NS 11:49 | PROVIDERS: PCP Family Medicine; Visit Provider Family Medicine | DX: Z71.3 Dietary counseling and surveillance (principal); E66.9 Obesity, unspecified; Z68.32 Body mass index [BMI] 32.0-32.9, adult | CPT/HCPCS: 97803 ==

== ENCOUNTER 2021-01-13 11:44 | Outpatient (RCR) | payer OTHER, SELFPAY ==
[2020-12-17 00:31] VITALS: BMI 32.8
== END 2021-01-15 23:59 ==
LOC: NS 11:44
PROVIDERS: PCP Family Medicine; Visit Provider Family Medicine
DX: Z71.3 Dietary counseling and surveillance (principal); E66.9 Obesity, unspecified; Z68.32 Body mass index [BMI] 32.0-32.9, adult
CPT/HCPCS: 97803

== ENCOUNTER 2021-04-29 18:23 | Outpatient (CLI) | payer OTHER, SELFPAY ==
[2021-04-29 18:51] VITALS: BP 126/85; PULSE 85; RESP 16; TEMP 37.1; O2SAT 99; BMI 28.8
[2021-04-29] MEDS: 0.9% Saline Lock 10 ML Syringe IV (19:00)
[2021-04-29 19:30] VITALS: BP 115/73; PULSE 70; RESP 16; TEMP 37; O2SAT 98
[2021-04-29 20:27] VITALS: BP 110/72; PULSE 76; RESP 16; TEMP 36.9; O2SAT 100
== END 2021-04-29 23:59 | disposition home or self-care (01) ==
LOC: MS3OUT 18:23 → MS3 18:24
PROVIDERS: PCP Family Medicine; Visit Provider Nurse Practitioner Adult Health
DX: Z23 Encounter for immunization (principal); U07.1 COVID-19
CPT/HCPCS: J7050; M0245; Q0245; A4216

== ENCOUNTER → 2021-08-10 | Outpatient (CLI) | payer OTHER, SELFPAY ==
--- NOTE | 2021-08-10 12:06 | BI_ITS ---
MAMMOGRAPHY - BILATERAL SCREENING 3-D TOMOSYNTHESIS REASON FOR EXAM: Female, 46 years old. SCREENING PERTINENT HISTORY: No significant family history. TECHNIQUE: 2-D mammograms and 3-D Tomosynthesis of the breast (s) were performed. CAD was performed. COMPARISON: 03/19/2020 FINDINGS: The breast composition is heterogeneously dense that can obscure small breast masses. Scattered benign calcifications are seen. No dense spiculated masses or suspicious microcalcifications are identified. No architectural distortion is identified. There is no skin thickening or retraction. There has been no significant change since the prior study. BI/SCRN MAMM (CAD)W/SANDI BILAT IMPRESSION: No mammographic signs of malignancy. Routine yearly mammograms recommended. ASSESSMENT CATEGORY: BIRADS Category 1: Negative. A letter regarding these results will be sent to the patient by the facility within 30 days. FOLLOW UP RECOMMENDATION: Yearly follow up mammogram recommended. (A) Approximately 10% of breast cancers are not detected by mammography. A normal mammogram should not delay biopsy of a clinically suspicious abnormality. Electronically Signed: Yonathan Ventura MD at 14:29 EDT ,
== END | disposition home or self-care (01) ==
LOC: OPBI 12:03
PROVIDERS: PCP Family Medicine; Visit Provider Family Medicine
DX: Z12.31 Encounter for screening mammogram for malignant neoplasm of breast (principal)
CPT/HCPCS: 77063; 77067

== ENCOUNTER → 2021-11-06 | Outpatient (CLI) | payer OTHER, SELFPAY ==
[2021-11-06 18:19] LABS: T4 Free Direct 1.46 ng/dL (0.76-1.46)
== END | disposition home or self-care (01) ==
LOC: MTLAB 15:37
PROVIDERS: PCP Family Medicine; Referring Provider Family Medicine; Visit Provider Family Medicine
DX: E03.9 Hypothyroidism, unspecified (principal)
CPT/HCPCS: 36415; 84439; 84443

== ENCOUNTER → 2022-09-30 | Outpatient (CLI) | payer SELFPAY ==
[2022-09-30 18:30] LABS: T4 Free Direct 1.22 ng/dL (0.76-1.46); Thyroid Stim Hormone (TSH) 0.08 uIU/mL (0.358-3.74)
== END | disposition home or self-care (01) ==
LOC: BFHLAB 14:56
PROVIDERS: PCP Family Medicine; Referring Provider Family Medicine; Visit Provider Family Medicine
DX: E03.9 Hypothyroidism, unspecified (principal)
CPT/HCPCS: 36415; 84439; 84443

== ENCOUNTER → 2022-12-14 | Outpatient (CLI) | payer SELFPAY ==
[2022-12-14 12:16] LABS: Absolute Neutrophil Count 4.5 X10^3/uL (2.0-7.7); Basophil# 0.03 X10^3/uL; Basophil% 0.4 % (0-1); Hematocrit 39.7 % (37-47); Hemoglobin 13.2 g/dL (12.0-15.0); Mean Corp Hgb Conc 33.2 g/dL (32-36); Mean Corpuscular Volume 84.3 fL (81-99); Mean Platelet Vol. 10.9 fl (6.2-12.0); Monocyte% 5.7 % (0-10); NRBC Flagged by Analyzer 0 % (0-5); Neutrophil # 4.45 X10^3/uL (2.7-7.7); Neutrophil % 63.5 % (47-70); Platelet Count 258 K/mm3 (150-450); RBC Distribution Width CV 13.6 % (11.6-14.6); RBC Distribution Width SD 41.9 fl (35.1-43.9); Red Blood Count 4.71 M/mm3 (4.2-5.4)
[2022-12-14 12:54] LABS: ALB/GLOB Ratio 0.9 RATIO (0.9-2.4); AST(SGOT) 20 U/L (15-37); Alanine Aminotransfer ALT/SGPT 24 U/L (13-56); Albumin, Serum 3.5 g/dL (3.2-5.0); Alkaline Phosphatase 75 U/L (45-117); Anion Gap 6 (5-15); BUN 16 mg/dL (7-18); BUN/Creat Ratio 21.4 RATIO (10-20); Calcium,Total 8.4 mg/dL (8.5-10.1); Chloride 105 mmol/L (98-107); Cholesterol 162 mg/dL (200); Creatinine, Serum 0.75 mg/dL (0.55-1.02); EST Glomerular Filtration Rate 89 mL/min (>60); Est Glom Filt Rate - Afr Amer 108 mL/min (>60); Globulin 3.7 g/dL (2.2-4.2); Glucose 91 mg/dL (74-106); High Density Lipoprotein 34 mg/dL; Potassium 4.2 mmol/L (3.5-5.1); Protein, Total 7.2 g/dL (6.4-8.2); Sodium Level 137 mmol/L (136-145); T4 Free Direct 1.22 ng/dL (0.76-1.46); Thyroid Stim Hormone (TSH) 1.75 uIU/mL (0.358-3.74); Triglycerides 167 mg/dL; Very Low Density Lipoprotein 33 mg/dL (5-40)
== END | disposition home or self-care (01) ==
LOC: BFHLAB 10:47
PROVIDERS: PCP Family Medicine; Referring Provider Family Medicine; Visit Provider Family Medicine
DX: E03.9 Hypothyroidism, unspecified (principal); E78.1 Pure hyperglyceridemia; K76.0 Fatty (change of) liver, not elsewhere classified
CPT/HCPCS: 36415; 80053; 80061; 84439; 84443; 85025

== ENCOUNTER → 2022-12-16 | Outpatient (CLI) | payer SELFPAY, OTHER ==
[2022-12-16 13:03] LABS: Vitamin D,25 Hydroxy 32.7 ng/mL
== END | disposition home or self-care (01) ==
LOC: BFHLAB 10:51
PROVIDERS: PCP Family Medicine; Referring Provider Family Medicine; Visit Provider Family Medicine
DX: E55.9 Vitamin D deficiency, unspecified (principal)
CPT/HCPCS: 36415; 82306

== ENCOUNTER → 2023-01-13 | Outpatient (CLI) | payer SELFPAY ==
--- NOTE | 2023-01-13 14:28 | BI_ITS ---
MAMMOGRAPHY - BILATERAL SCREENING REASON FOR EXAM: Female, 47 years old. Routine annual screening examination. PERTINENT HISTORY: Non-contributory. TECHNIQUE: Digital bilateral breast sandi (3D mammographic acquisition) in the CC and MLO projections. 2-D mediolateral oblique (MLO) and craniocaudad (CC) views of both breasts were obtained. CAD: Full Field Digital Mammography with Computer Added Detection was performed. COMPARISON: Comparison is made with prior study August 10, 2021 and March 19, 2020. FINDINGS: Breast Composition: The breasts are heterogeneously dense, which may obscure small masses. There are no dominant masses or suspicious calcifications. Stable benign-appearing bilateral axillary lymph nodes. No other significant abnormalities are identified. There has been no significant change since the prior study. BI/SCRN MAMM (CAD)W/SANDI BILAT IMPRESSION: Stable bilateral screening mammogram. Yearly follow-up mammogram recommended. (A) ASSESSMENT CATEGORY: BIRADS Category 2: Benign. A letter regarding these results will be sent to the patient by the facility within 30 days. Approximately 10% of breast cancers are not detected by mammography. A normal mammogram should not delay biopsy of a clinically suspicious abnormality. [id number] Electronically Signed: Miguel Velez MD at 15:18 EDT ,
== END | disposition home or self-care (01) ==
PROVIDERS: PCP Family Medicine; Referring Provider Family Medicine; Visit Provider Family Medicine
DX: Z12.31 Encounter for screening mammogram for malignant neoplasm of breast (principal)
CPT/HCPCS: 77063; 77067

== ENCOUNTER 2023-07-26 11:03 | Outpatient (RCR) | payer SELFPAY | END 2023-08-16 23:59 | LOC: NS 11:03 | PROVIDERS: PCP Family Medicine | DX: Z71.3 Dietary counseling and surveillance (principal); E66.9 Obesity, unspecified | CPT/HCPCS: 97802 ==

== ENCOUNTER 2023-08-18 11:03 | Outpatient (RCR) | payer SELFPAY | END 2023-09-16 23:59 | LOC: NS 11:03 | PROVIDERS: PCP Family Medicine | DX: Z71.3 Dietary counseling and surveillance (principal); E66.9 Obesity, unspecified; Z68.32 Body mass index [BMI] 32.0-32.9, adult | CPT/HCPCS: 97803 ==

== ENCOUNTER 2023-09-22 11:38 | Outpatient (RCR) | payer SELFPAY | END 2023-10-16 23:59 | LOC: NS 11:38 | PROVIDERS: PCP Family Medicine | DX: Z71.3 Dietary counseling and surveillance (principal); E66.9 Obesity, unspecified | CPT/HCPCS: 97803 ==

== ENCOUNTER 2023-10-24 10:06 | Outpatient (RCR) | payer SELFPAY | END 2023-11-16 23:59 | LOC: NS 10:06 | PROVIDERS: PCP Family Medicine | DX: Z71.3 Dietary counseling and surveillance (principal) | CPT/HCPCS: 97803 ==

== ENCOUNTER 2023-11-11 22:29 | Emergency (ER) | payer OTHER, SELFPAY ==
[2023-11-11 22:31] VITALS: BP 148/91; PULSE 100; RESP 20; TEMP 35.7; O2SAT 100; BMI 33.0
--- NOTE | 2023-11-11 22:51 | CT_ITS ---
EXAM: CT Abdomen And Pelvis W/ Contrast Injection HISTORY: abd pain TECHNIQUE: Routine protocol CT abdomen pelvis. IV Contrast: IV 100mL Isovue-370 . Oral Contrast: without. Sagittal and coronal images were reconstructed. RADIATION DOSAGE (If Supplied By Facility): CTDIvol = ( 14.37 ) mGy, DLP = ( 1110.06 ) mGycm Individualized dose optimization techniques were used for this CT. COMPARISON: CT abdomen and pelvis 12/21/2013. LIMITATIONS: None. FINDINGS: LOWER CHEST: Minimal dependent atelectasis in the lung bases. LIVER: Unremarkable. GALLBLADDER/BILE DUCTS: Unremarkable. PANCREAS: Unremarkable. SPLEEN: Unremarkable. ADRENAL GLANDS: Unremarkable. KIDNEYS / URETERS: Unremarkable. BOWEL / MESENTERY: Wall thickening distal descending colon with adjacent inflammatory stranding. Diverticula in this region and a few scattered throughout the colon. No bowel obstruction. APPENDIX: Identified and normal. No evidence of acute appendicitis. PERITONEUM: No free air. Minimal free fluid in the left lower abdomen and pelvis. VESSELS: Abdominal aorta is normal caliber. RETROPERITONEUM: Unremarkable. REPRODUCTIVE ORGANS: Unremarkable. BLADDER: Unremarkable. ABDOMINAL WALL: Unremarkable. BONES: No acute abnormality. OTHER: None. CT/Abdomen/Pelvis W IV Cont ONLY IMPRESSION: Acute diverticulitis distal descending colon. No evidence of perforation or abscess. Electronically Signed: Clementine Brewer MD at 0:42 EDT ,
[2023-11-11 23:02] LABS: Absolute Lymphocyte Count 2.24 X10^3/uL (0.83-4.51); Absolute Neutrophil Count 10.2 X10^3/uL (2.0-7.7); Basophil# 0.03 X10^3/uL; Basophil% 0.2 % (0-1); Hematocrit 40.4 % (37-47); Hemoglobin 12.8 g/dL (12.0-15.0); Lymphocyte # 2.24 X10^3/ul (0.83-4.51); Lymphocyte % 16.7 % (19-41); Mean Corp Hgb Conc 31.7 g/dL (32-36); Mean Corpuscular Hgb 25.8 pg (27.0-32.0); Mean Corpuscular Volume 81.3 fL (81-99); Mean Platelet Vol. 10.1 fl (6.2-12.0); Monocyte# 0.87 X10^3/uL; Monocyte% 6.5 % (0-10); NRBC Flagged by Analyzer 0 % (0-5); Neutrophil # 10.21 X10^3/uL (2.7-7.7); Neutrophil % 76.2 % (47-70); Platelet Count 291 K/mm3 (150-450); RBC Distribution Width CV 14.7 % (11.6-14.6); Red Blood Count 4.97 M/mm3 (4.2-5.4); White Blood Count 13.4 K/mm3 (4.4-11.0)
[2023-11-11] MEDS: 0.9% Normal Saline (1000mL) 1,000 ML 999 ML IV (23:05)
[2023-11-11] MEDS: HYDROcodone Bitartrate/Apap 5/325 Tablet PO (23:05)
[2023-11-11 23:21] LABS: Internal QC Validated? YES +Cl - CLEAR BKGD; Pregnancy, Serum, hCG Quali. NEGATIVE Negative
[2023-11-11 23:22] LABS: AST(SGOT) 18 U/L (15-37); Alanine Aminotransfer ALT/SGPT 21 U/L (13-56); Albumin, Serum 3.7 g/dL (3.2-5.0); Alkaline Phosphatase 84 U/L (45-117); Anion Gap 6 (5-15); BUN 12 mg/dL (7-18); BUN/Creat Ratio 11.4 RATIO (10-20); Bilirubin, Direct 0.14 mg/dL (0.00-0.30); Calcium,Total 8.4 mg/dL (8.5-10.1); Chloride 108 mmol/L (98-107); Creatinine, Serum 1.05 mg/dL (0.55-1.02); EST Glomerular Filtration Rate 60 mL/min (>60); Est Glom Filt Rate - Afr Amer 72 mL/min (>60); Estimated Creatinine Clearance 68.99 ml/min; Globulin 4.1 g/dL (2.2-4.2); Glucose 123 mg/dL (74-106); Lipase 55 U/L (13-75); Potassium 3.6 mmol/L (3.5-5.1); Protein, Total 7.8 g/dL (6.4-8.2); Sodium Level 139 mmol/L (136-145)
[2023-11-11 23:36] LABS: Lactic Acid 1.8 mmol/L (0.4-1.9)
[2023-11-12 00:30] VITALS: RESP 16
--- NOTE | 2023-11-12 01:00 | EX.ED.DYSGE1 ---
HPI History of Present Illness Chief Complaint: Abd Pain Informant: patient Narrative Narrative: Patient is a 48-year-old female with past medical history of hypothyroidism and anxiety. She states that roughly a week ago she had 3 days worth of the stomach bug. She states this resolved and she was doing well but in the last 24 to 48 hours has noticed increasing pain to the left lower abdomen and this evening had a bout of bloody loose stool. She denies any history of bleeding disorder or blood thinner use. She denies any history of ulcerative colitis or Crohn's disease. She denies any recent antibiotics or travel outside the country or livestock exposure. However with the increasing pain she is concerned for an infectious process and comes in for evaluation [facility] Home Medications ?Medication ?Instructions ?Recorded ?Last Taken ?Type cholecalciferol (vitamin D3) 25 2,000 unit PO DAILY 11/04/16 Unknown History mcg (1,000 unit) tablet (Vitamin D3) citalopram 10 mg tablet 5 mg PO QODAY 11/04/16 Unknown History wvnihaog-bef-eemc-FA-Ca carb-vit K 1 ea PO DAILY 11/04/16 Unknown History 18 mg iron-400 mcg-500 mg tablet (Women's Daily Formula) calcium carbonate-magnesium oxide 2 ea PO DAILY 06/09/19 Unknown History 333 mg-167 mg tablet levothyroxine 112 mcg tablet 112 mcg PO DAILY 06/09/19 Unknown History L.acidoph, paracasei,B. lactis 10 1 ea PO DAILY 01/16/20 Unknown History billion cell capsule montelukast 10 mg tablet 10 mg PO DAILY PRN allergic 01/16/20 Unknown History reaction amoxicillin 875 mg-potassium 1 tab PO BID 7 days #14 tabs 11/12/23 Unknown Rx clavulanate 125 mg tablet hydrocodone-acetaminophen 5-325mg 1 tab PO Q6H PRN pain 3 days #12 11/12/23 Unknown Rx 5mg-325mg tabs Allergy/AdvReac Type Severity Reaction Status Date / Time aspirin Allergy Hives Verified 11/11/23 22:30 fenofibrate Allergy Hives Verified 11/11/23 22:30 hydromorphone HCl (From Allergy Itching Verified 11/11/23 22:30 Dilaudid) ibuprofen (From Motrin) Allergy Swelling Verified 11/11/23 22:30 naproxen (From Naprosyn) Allergy Hives Verified 11/11/23 22:30 ubidecarenone (From H2Q Allergy Hives Verified 11/11/23 22:30 CoQ10) Social History Smoking Status: Never smoker ROS ROS ED Constitutional Constitutional ED: Denies chills or fever(s) Eyes Eyes: Denies change in vision ENT ENT ED: Denies sore throat Cardiovascular Cardiovascular: Denies chest pain Respiratory/Chest Respiratory/Chest: Denies cough or dyspnea Gastrointestinal Gastrointestinal: Reports abdominal pain and diarrhea; Denies nausea or vomiting Genitourinary Genitourinary ED: Denies dysuria or hematuria Musculoskeletal Musculoskeletal: Denies myalgias Integumentary Denies rash Neurologic Neurologic: Denies headache(s) Hematologic/Lymphatic Hematologic/Lymphatic: Denies easy bleeding or easy bruising EXAM Physical Exam Const Vital Signs: 11/11/23 22:31 11/12/23 00:30 Temperature 96.3 F L Temperature Source Temporal Pulse Rate 100 Respiratory Rate 20 H 16 Blood Pressure 148/91 H Blood Pressure Mean 110 Pulse Ox 100 Oxygen Delivery Method Room Air Positive well nourished and well developed General Appearance ED: well developed; Negative for pallor HEENT HEENT Narrative: Normocephalic atraumatic Eyes PERRL and EOMs intact bilaterally General Eye ED: Negative for scleral icterus Neck supple Resp normal respiratory effort and clear to auscultation bilaterally Cardio regular rate and regular rhythm Rate: other Other Details: Heart is regular rate and rhythm without murmurs rubs or gallop Radial and carotid pulses are equal and symmetric GI non-distended GI Narrative: Abdomen is soft and nondistended with normal active bowel sounds. There is mild pain to palpation in the left lower quadrant without voluntary guarding or rigidity or pulsatile mass Auscultation: normoactive bowel sounds Palpation: soft Extremity normal to inspection Neuro oriented x3, CN's II-XII intact bilaterally and no sensory deficits noted Sensorium / Orientation: alert Motor Exam: strength 5/5 throughout Psych mental status grossly normal Skin no rashes or lesions noted and no wounds General Skin Exam: Negative for jaundice or pallor MDM MDM MDM Narrative Medical decision making narrative: Patient presented to the ER hypertensive otherwise with stable vitals. Abdomen is soft and nonsurgical but with pain in the left lower quadrant and report of loose bloody stool there is concern for diverticulitis versus colitis versus diverticulosis and therefore basic labs and a CT scan were obtained. Labs showed leukocytosis at 13.4 but no lactic acidosis and no signs of acute kidney injury or severe electrolyte abnormality. Also there is no signs of liver dysfunction or pancreatitis. CT scan confirms simple uncomplicated diverticulitis without abscess or perforation. Therefore at this time she can be placed on oral antibiotics and pain medication and is otherwise safe for discharge History & Record Review Discussion w/independent historian: Patient Lab Data Attestation: I reviewed the patient's lab results. Labs: Laboratory Results - last 24 hr 11/11/23 11/11/23 22:42 22:58 WBC 13.4 H RBC 4.97 Hgb 12.8 Hct 40.4 MCV 81.3 MCH 25.8 L MCHC 31.7 L RDW Std Deviation 43.0 RDW Coeff of Víctor 14.7 H Plt Count 291 MPV 10.1 Immature Gran % (Auto) 0.400 Neut % (Auto) 76.2 H Lymph % (Auto) 16.7 L Dawes % (Auto) 6.5 Eos % (Auto) 0.0 Baso % (Auto) 0.2 Absolute Neuts (auto) 10.2 H Absolute Lymphs (auto) 2.24 Nucleated RBC % 0 Sodium 139 Potassium 3.6 Chloride 108 H Carbon Dioxide 25.0 Anion Gap 6 BUN 12 Creatinine 1.05 H Estim Creat Clear Calc 68.99 Est GFR (MDRD) Af Amer 72 Est GFR (MDRD) Non-Af 60 BUN/Creatinine Ratio 11.4 Glucose 123 H Lactic Acid 1.8 Calcium 8.4 L Total Bilirubin 0.40 Direct Bilirubin 0.14 AST 18 ALT 21 Alkaline Phosphatase 84 Total Protein 7.8 Albumin 3.7 Globulin 4.1 Lipase 55 Serum , Qual NEGATIVE Radiography Diagnostic Testing: Clinical Impression(s) from Imaging Studies Abdomen/Pelvis CT 11/11/23 22:51 IMPRESSION: Acute diverticulitis distal descending colon. No evidence of perforation or abscess. Electronically Signed: Clementine Brewer MD at 0:42 EDT , Discharge Plan Triage Chief Complaint: Abd Pain ED Provider: Telly Carrion Dx/Rx/DC Orders Clinical Impression: Diverticulitis, Hypothyroidism, History of anxiety disorder Instructions: Diverticulitis Dc Prescriptions: New amoxicillin-pot clavulanate 875-125 mg tablet 1 tab PO BID 7 Days Qty: 14 0RF hydrocodone-acetaminophen 5-325 mg tablet 1 tab PO Q6H PRN (Reason: pain) 3 Days Qty: 12 0RF No Action citalopram 10 MG tablet 5 mg PO QODAY Patient Comments: ANXIETY Rx Instructions: alternating 5mg/10mg daily cholecalciferol (vitamin D3) [Vitamin D3] 1,000 UNIT tablet 2,000 unit PO DAILY Patient Comments: SUPPLEMENT Women's Daily Formula 1 EACH tablet 1 ea PO DAILY Patient Comments: SUPPLEMENT levothyroxine 112 MCG tablet 112 mcg PO DAILY calcium carbonate-mag oxide 1 EACH tablet 2 ea PO DAILY montelukast 10 MG tablet 10 mg PO DAILY PRN (Reason: allergic reaction) L.acidoph, paracasei,B. lactis 1 EACH capsule 1 ea PO DAILY Primary Care Provider: Jenn Stark Referrals: Jenn Stark MD [Primary Care Provider] - Activity Restrictions/Additional Instructions: Please take your antibiotic as directed to resolve your intestinal infection and return to the ER if you have any further concerns or worsening of symptoms Print Language: Frisian Disposition Disposition: Home, Self Care
[2023-11-12] MEDS: Piperacil/Tazobactam 3.375 GM in 0.9% Normal Saline (50mL MB+) 50 ML IV (01:08)
[2023-11-12] MEDS: HYDROcodone Bitartrate/Apap 5/325 Tablet PO (01:19)
[2023-11-12 01:49] VITALS: BP 137/68; PULSE 72; RESP 18; TEMP 36.8; O2SAT 99
== END 2023-11-12 01:51 | disposition home or self-care (01) ==
PROVIDERS: Emergency Provider Emergency Medicine; PCP Family Medicine; Visit Provider Emergency Medicine
DX: K57.31 Diverticulosis of large intestine without perforation or abscess with bleeding (principal); E03.9 Hypothyroidism, unspecified; F41.9 Anxiety disorder, unspecified; Z79.890 Hormone replacement therapy; Z79.899 Other long term (current) drug therapy
CPT/HCPCS: 74177; 80048; 80076; 83605; 83690; 84703; 85025; 96360; 96361; 96365; 99282; J7030; Q9967; A4216

== ENCOUNTER 2023-11-29 11:33 | Outpatient (RCR) | payer SELFPAY | END 2023-12-17 23:59 | LOC: NS 11:33 | PROVIDERS: PCP Family Medicine | DX: Z71.3 Dietary counseling and surveillance (principal) | CPT/HCPCS: 97803 ==

== ENCOUNTER 2024-01-10 14:39 | Outpatient (RCR) | payer SELFPAY | END 2024-01-16 23:59 | LOC: NS 14:39 | PROVIDERS: PCP Family Medicine | DX: Z71.3 Dietary counseling and surveillance (principal) | CPT/HCPCS: 97803 ==

== ENCOUNTER 2024-02-08 16:00 | Outpatient (RCR) | payer SELFPAY | END 2024-02-16 23:59 | LOC: NS 16:00 | PROVIDERS: PCP Family Medicine | DX: Z71.3 Dietary counseling and surveillance (principal) | CPT/HCPCS: 97803 ==

== ENCOUNTER → 2024-02-23 | Outpatient (CLI) | payer SELFPAY ==
--- NOTE | 2024-02-23 12:57 | BI_ITS ---
MAMMOGRAPHY - BILATERAL SCREENING REASON FOR EXAM: Female, 48 years old. Routine annual screening examination. PERTINENT HISTORY: Non-contributory. TECHNIQUE: Digital bilateral breast sandi (3D mammographic acquisition) in the CC and MLO projections. 2-D mediolateral oblique (MLO) and craniocaudad (CC) views of both breasts were obtained. CAD: Full Field Digital Mammography with Computer Added Detection was performed. COMPARISON: Comparison is made with prior study January 05, 2023 and August 10, 2021. FINDINGS: Breast Composition: The breasts are heterogeneously dense, which may obscure small masses. There are no dominant masses or suspicious calcifications. Stable small bilateral axillary lymph nodes. No other significant abnormalities are identified. There has been no significant change since the prior study. BI/SCRN MAMM (CAD)W/SANDI BILAT IMPRESSION: Stable bilateral screening mammogram. Yearly follow-up mammogram recommended. (A) ASSESSMENT CATEGORY: BIRADS Category 2: Benign. A letter regarding these results will be sent to the patient by the facility within 30 days. Approximately 10% of breast cancers are not detected by mammography. A normal mammogram should not delay biopsy of a clinically suspicious abnormality. [id number] Electronically Signed: Miguel Velez MD at 14:02 EST ,
== END | disposition home or self-care (01) ==
PROVIDERS: PCP Family Medicine; Referring Provider Family Medicine; Visit Provider Family Medicine
DX: Z12.31 Encounter for screening mammogram for malignant neoplasm of breast (principal)
CPT/HCPCS: 77063; 77067

== ENCOUNTER → 2024-03-01 | Outpatient (CLI) | payer SELFPAY ==
[2024-03-01 16:03] LABS: Estradiol 109.9 pg/mL
[2024-03-01 16:40] LABS: Vitamin D,25 Hydroxy 23.9 ng/mL
[2024-03-03 08:12] LABS: PROGESTERONE 0.1 ng/mL (.)
== END | disposition home or self-care (01) ==
LOC: BFHLAB 13:08
PROVIDERS: PCP Family Medicine; Referring Provider Family Medicine; Visit Provider Family Medicine
DX: E03.9 Hypothyroidism, unspecified (principal); K76.0 Fatty (change of) liver, not elsewhere classified
CPT/HCPCS: 36415; 82306; 82670; 84144; 84403; 84443

== ENCOUNTER → 2024-03-09 | Outpatient (CLI) | payer SELFPAY ==
[2024-03-21 17:07] LABS: Age Gdln ACOG Testing 30-65 (.); HPV APTIMA, High Risk Negative (Negative)
[2024-03-22 07:58] LABS: HPV Reflexed? YES, CHARGE PATIENT
== END | disposition home or self-care (01) ==
LOC: LABSPEC 13:55
PROVIDERS: PCP Family Medicine; Visit Provider Family Medicine
DX: Z12.4 Encounter for screening for malignant neoplasm of cervix (principal)
CPT/HCPCS: 87624; 88175; G0145

== ENCOUNTER 2024-03-27 12:07 | Outpatient (RCR) | payer SELFPAY | END 2024-04-17 23:59 | LOC: NS 12:07 | PROVIDERS: PCP Family Medicine | DX: Z71.3 Dietary counseling and surveillance (principal); E66.9 Obesity, unspecified; Z68.33 Body mass index [BMI] 33.0-33.9, adult | CPT/HCPCS: 97803 ==

== ENCOUNTER 2024-07-16 11:30 | Outpatient (RCR) | payer SELFPAY | END 2024-07-16 23:59 | LOC: NS 11:30 | PROVIDERS: PCP Family Medicine | DX: Z71.3 Dietary counseling and surveillance (principal) | CPT/HCPCS: 97803 ==